=== PATIENT | female | born 1975 | race Two or more races ===

== ENCOUNTER 2023-09-19 01:52 | Inpatient (IN) | payer MEDICAID, OTHER ==
[~2023-09-19] VITALS: Ht 165.1 cm; Wt 89.7 kg
[2023-09-19 02:55] LABS: Basophils # (auto) 0.1 10 ^3/uL (0-0.2); Basophils % (auto) 0.8 % (0.0-2.0); Eosinophils # (auto) 0.2 10 ^3/uL (0-0.8); Eosinophils % (auto) 2.2 % (0.0-7.0); Hematocrit 38.6 % (36.0-46.0); Hemoglobin 12.8 g/dL (12.2-16.2); Lymphocytes # (auto) 2.7 10 ^3/uL (0.4-5.4); Mean Corpuscular Hemoglobin 27.8 pg (28.0-32.0); Mean Corpuscular Volume 84.1 fL (80.0-100.0); Monocytes # (auto) 0.6 10 ^3/uL (0-1.3); Neutrophils # (auto) 6.8 10 ^3/uL (1.6-8.6); Red Blood Cells 4.59 10^6/uL (4.0-5.20); Red Cell Distribution Width 14.2 % (11.8-14.3); White Blood Cell 10.4 10^3/uL (4.4-10.8)
[2023-09-19 03:05] LABS: Alanine Aminotransferase 23 U/L (7-40); Alkaline Phosphatase 60 U/L (46-116); Anion Gap 5 (5-15); Aspartate Aminotransferase 14 U/L (13-40); Blood Urea Nitrogen 13 mg/dL (9-23); Calcium 9.5 mg/dL (8.7-10.4); Carbon Dioxide 26 mmol/L (20-30); Chloride 109 mmol/L (98-107); Glucose 138 mg/dL (74-106); Potassium 3.5 mmol/L (3.5-5.1); Sodium 140 mmol/L (136-145)
[2023-09-19 03:06] LABS: Bilirubin, Total 0.2 mg/dL (0.2-1.0)
[2023-09-19] MEDS: MAALOX PLUS or MAALOX 30 ML PO ONE (08:30)
[2023-09-19] MEDS: LIDOCAINE VISCOUS 2% 15ML UD PO ONE (08:30)
[2023-09-19] MEDS: DONNATAL 5ml ORAL Elix (BELLADONNA ALK-PHENOBARB) PO ONE (08:31)
[2023-09-19 09:14] VITALS: PULSE 74; O2SAT 96
[2023-09-19] MEDS ORDERED: ONDANSETRON HCL 4 MG/2 ML VIAL IV PRN (10:00)
[2023-09-19] MEDS ORDERED: MORPHINE SULFATE INJ 2 MG/ml SYRG IV PRN (10:00)
[2023-09-19] MEDS ORDERED: DOCUSATE SOD 100 MG CAP PO PRN (10:00)
[2023-09-19] MEDS ORDERED: MAALOX PLUS or MAALOX 30 ML PO PRN (10:00)
[2023-09-19] MEDS: SODIUM CHLORIDE 0.9% 1,000 ML IV SCH (10:25)
[2023-09-19] MEDS: PANTOPRAZOLE 40 MG/10 ML VIAL INJ IV SCH (10:26)
[2023-09-19] MEDS: DICYCLOMINE HCL 10 MG CAP PO ONE (10:31)
[2023-09-19] MEDS: DICYCLOMINE HCL 10 MG CAP PO SCH (18:00)
[2023-09-20] MEDS ORDERED: NORPTMEDS (02:00)
[2023-09-20 05:00] VITALS: BP 137/77; PULSE 73; RESP 20; TEMP 98.5; O2SAT 96
[2023-09-20 07:25] LABS: Basophils # (auto) 0.1 10 ^3/uL (0-0.2); Basophils % (auto) 1.2 % (0.0-2.0); Eosinophils # (auto) 0.4 10 ^3/uL (0-0.8); Eosinophils % (auto) 4.7 % (0.0-7.0); Hemoglobin 13.1 g/dL (12.2-16.2); Lymphocytes # (auto) 2.1 10 ^3/uL (0.4-5.4); Lymphocytes % (auto) 22.5 % (10.0-50.0); Mean Corpuscular Hemoglobin 27.5 pg (28.0-32.0); Mean Corpuscular Hgb Conc. 32.9 g/dL (32.0-36.0); Mean Corpuscular Volume 83.7 fL (80.0-100.0); Monocytes # (auto) 0.5 10 ^3/uL (0-1.3); Monocytes % (auto) 5.4 % (0.0-12.0); Neutrophils # (auto) 6.2 10 ^3/uL (1.6-8.6); Neutrophils % (auto) 66.2 % (37.0-80.0); Red Blood Cells 4.77 10^6/uL (4.0-5.20); Red Cell Distribution Width 14.6 % (11.8-14.3); White Blood Cell 9.4 10^3/uL (4.4-10.8)
[2023-09-20 07:47] LABS: Alanine Aminotransferase 28 U/L (7-40); Albumin 3.8 g/dL (3.2-4.8); Alkaline Phosphatase 52 U/L (46-116); Anion Gap 7 (5-15); Aspartate Aminotransferase 23 U/L (13-40); Blood Urea Nitrogen 8 mg/dL (9-23); Calcium 8.9 mg/dL (8.5-10.1); Carbon Dioxide 24 mmol/L (20-30); Chloride 109 mmol/L (98-107); Glucose 90 mg/dL (74-106); Potassium 3.9 mmol/L (3.5-5.1); Sodium 140 mmol/L (136-145)
[2023-09-20 07:48] LABS: Bilirubin, Total 0.4 mg/dL (0.2-1.0); Total Protein 6.2 g/dL (5.7-8.2)
[2023-09-20 08:00] VITALS: RESP 16; O2SAT 95
[2023-09-20 09:22] VITALS: BP 106/69; PULSE 60; RESP 18; TEMP 98.5; O2SAT 96
[2023-09-20 13:00] VITALS: BP 142/67; PULSE 64; RESP 16; TEMP 97.9; O2SAT 98
[2023-09-20] MEDS ORDERED: PANT40TA2 PO (16:40)
[2023-09-20] MEDS ORDERED: SUCR1TAB31 PO (16:41)
[2023-09-20 17:00] VITALS: BP 115/78; PULSE 65; RESP 18; TEMP 98.5; O2SAT 96
== END 2023-09-20 19:20 | disposition home or self-care (01) | DRG 243 ==
LOC: EDBD 01:52 → ER 01:52 → OVERFLOW 10:02 → WEST WING 23:35
PROVIDERS: ADMIT Nurse Practitioner Family; ATTEND Nurse Practitioner Family
DX: K21.9 Gastro-esophageal reflux disease without esophagitis (principal); R16.0 Hepatomegaly, not elsewhere classified; R13.10 Dysphagia, unspecified
CPT/HCPCS: 36415; 71045; 76705; 80053; 83690; 84484; 85025; C9113; G0378